=== PATIENT | female | born 1965 | race Caucasian/White ===

== ENCOUNTER 2018-06-12 11:48 | Emergency (ER) | payer OTHER ==
[~2018-06-12] VITALS: Ht 167.6 cm; Wt 95.3 kg
--- OUTSIDE RECORDS SUMMARY | 2018-06-12 11:50 | XMS REPORT | Clinical Summary ---
Author Author [facility] Organization [facility] Address Unknown Phone Unavailable Care Team Providers Care Loaf Counter Name Role Phone Clemente Pitt MD PCP Allergies Comments Active Allergy Reactions Severity Noted Date Ciprofloxacin 07/13/2015 Medications End Date Status Medication Sig Dispensed Refills Start Date Active FARXIGA 10 mg tablet Take 1 tablet 5 by mouth once 6 daily. Active metFORMIN XR Take 1,000 mg 6 (GLUCOPHATE-XR) 500 MG 24 by mouth once 6 hr tablet daily. Active omeprazole (PriLOSEC) 40 Take 40 mg by 11 MG capsule mouth 2 (two) 6 times a day. Active metoclopramide (REGLAN) TAKE 1 TABLET 30 tablet 2 10 MG tablet BY MOUTH 7 EVERY NIGHT 09/16/2017 methocarbamol (ROBAXIN) Take 1 tablet 20 tablet 0 500 MG tablet (500 mg 8 total) by mouth 2 (two) times a day for 30 days. 09/16/2017 naproxen (NAPROSYN) 500 Take 1 tablet 60 tablet 0 MG tablet (500 mg 8 total) by mouth 2 (two) times a day with meals for 30 days. Active Problems Not on file Encounters Care Team Description Date Type Specialty Brandin Lara DO Spasm of thoracic back muscle (Primary Dx) 08/17/2017 Emergency Emergency Medicine after 06/11/2017 Family History Medical History Relation Name Comments Lung cancer Father Lung disease Father Cancer Maternal Grandfather Heart disease Maternal Grandfather Lung disease Maternal Grandfather Cancer Maternal Grandmother Heart disease Maternal Grandmother Lung disease Maternal Grandmother Hypertension Mother Crohn's disease Other Unidentified Cancer Paternal Grandfather Heart disease Paternal Grandfather Lung disease Paternal Grandfather Cancer Paternal Grandmother Heart disease Paternal Grandmother Lung disease Paternal Grandmother Relation Name Status Comments Father Maternal Grandfather Maternal Grandmother Mother Other Unidentified Paternal Grandfather Paternal Grandmother Social History Date Tobacco Use Types Packs/Day Years Used Never Smoker Smokeless Tobacco: Never Used Alcohol Use Drinks/Week oz/Week Comments No rare Sex Assigned at Date Recorded Not on file Industry Job Start Date Occupation Not on file Not on file Not on file Travel End Travel History Travel Start No recent travel history available. Last Filed Vital Signs Time Taken Vital Sign Reading 08/17/2017 1:26 PM CDT Blood Pressure 124/78 08/17/2017 1:26 PM CDT Pulse 92 08/17/2017 10:35 AM CDT Temperature 37.2 C (98.9 F) 08/17/2017 1:26 PM CDT Respiratory Rate 16 08/17/2017 1:26 PM CDT Oxygen Saturation 100% - Inhaled Oxygen - Concentration - Weight - - Height - - Body Mass Index - Plan of Treatment Health Maintenance Due Date Last Done Comments CERVICAL CANCER SCREENING 11/19/1987 BREAST CANCER SCREENING 2016 COLON CANCER SCREENING 2016 SHINGLES VACCINES (#1) 2016 INFLUENZA VACCINE 09/27/2018 Procedures Comments Procedure Name Priority Date/Time Associated Diagnosis CT ANGIOGRAM PE CHEST STAT 08/17/2017 12:41 PM CDT HCG QUALITATIVE, URINE STAT 08/17/2017 SCREEN 11:52 AM CDT ZZESTIMATED GFR STAT 08/17/2017 11:16 AM CDT BASIC METABOLIC PANEL STAT 08/17/2017 11:16 AM CDT HC COMPLETE BLD COUNT STAT 08/17/2017 W/AUTO DIFF 11:16 AM CDT XR CHEST 2 VW STAT 08/17/2017 11:14 AM CDT ECG 12-LEAD STAT 08/17/2017 11:02 AM CDT ECG ED PRELIMINARY Routine 08/17/2017 INTERPRETATION 10:55 AM CDT after 06/11/2017 Results * CT Angiogram Pe Chest (08/17/2017 12:41 PM CDT) Narrative Performed At Examination: [facility] Clinical history: chest paintachycardia Comparison: None Technique: Multiple computerized axial tomographic images were obtained of the chest during administration of IV contrast according to CTA PE chest protocol. Sagittal and coronal MIP CT angiographic series were constructed. CT imaging was performed with iterative reconstruction technique and/or automated exposure control to reduce radiation dose. IMPRESSION: 1.Pulmonary arterial opacification is satisfactory. There is no evidence of pulmonary embolism. 2.There is no significant pleural or pericardial effusion, mediastinal or hilar lymphadenopathy. 3.The heart is not enlarged. The thoracic aorta is normal caliber. 4.A 0.2 cm pleural-based right middle lobe nodule is nonspecific, though such findings are generally considered nonaggressive given small size and location. Please correlate with the patient's risk factors to determine whether further surveillance is necessary. A benign calcified granulomas present within the right middle lobe. 5.There is no acute osseous pathology.Cholecystectomy clips are present. Conclusion: 1. No evidence of pulmonary embolism. 2. Please see above. [facility]-[id number] Procedure Note Interface, Radiology Results Incoming - 08/17/2017 12:49 PM CDT Examination: CT ANGIOGRAM PE CHEST Clinical history: chest pain tachycardia Comparison: None Technique: Multiple computerized axial tomographic images were obtained of the chest during administration of IV contrast according to CTA PE chest protocol. Sagittal and coronal MIP CT angiographic series were constructed. CT imaging was performed with iterative reconstruction technique and/or automated exposure control to reduce radiation dose. IMPRESSION: 1. Pulmonary arterial opacification is satisfactory. There is no evidence of pulmonary embolism. 2. There is no significant pleural or pericardial effusion, mediastinal or hilar lymphadenopathy. 3. The heart is not enlarged. The thoracic aorta is normal caliber. 4. A 0.2 cm pleural-based right middle lobe nodule is nonspecific, though such findings are generally considered nonaggressive given small size and location. Please correlate with the patient's risk factors to determine whether further surveillance is necessary. A benign calcified granulomas present within the right middle lobe. 5. There is no acute osseous pathology. Cholecystectomy clips are present. Conclusion: 1. No evidence of pulmonary embolism. 2. Please see above. [facility]-[id number] Performing Organization Address City/State/Zipcode Phone Number [facility] [address] [place] [address] * hCG qualitative, urine screen (08/17/2017 11:52 AM CDT) hCG qualitative, urine Negative Negative [facility] [place] Comment: PATHOLOGY AND The manufacturers stated GENOMIC MEDICINE sensitivity of HcG test for serum is >/=10 mIU/ml and urine is >/=20mIU/ml. Specimen Urine Performing Organization Address City/State/Zipcode Phone Number [facility] [address] [place] [phone] PATHOLOGY AND [facility] * Estimated GFR (08/17/2017 11:16 AM CDT) GFR Non Af Amer >90 mL/min/1.73 m2 [facility]OLOGY AND [facility] GFR Af Amer >90 mL/min/1.73 m2 [facility] Comment: PATHOLOGY AND Chronic kidney disease: <60 GENOMIC MEDICINE mL/min/1.73m2 Kidney failure: <15 mL/min/1.73m2 The estimated GFR is calculated from the IDMS-traceable Modification of Diet in Renal Disease Equation. The accuracy of the calculation is poor when the creatinine is normal. Calculated values >90 mL/min/1.73m2 are not reported. This equation has not been validated in children (<18 years), women, the elderly (>70 years), or ethnic groups other than Caucasians and Americans. Specimen Plasma specimen Performing Organization Address City/State/Zipcode Phone Number [facility] [address] [facility] [place] [address] PATHOLOGY AND [facility] * CBC with platelet and differential (08/17/2017 11:16 AM CDT) WBC 6.0 4.2 - 11.0 k/uL [facility] RBC 4.95 4.04 - 5.86 m/uL [facility]IC[facility] HGB 9.7 (L) 11.5 - 15.3 g/dL [facility] AND [facility]IC[facility] HCT 33.9 (L) 34.0 - 45.0 % [facility]IC[facility] MCV 68.5 (L) 80.0 - 98.0 fL [facility] AND [facility] MEDICINE MCH 19.6 (L) 27.0 - 34.0 pg [facility] AND [facility] MEDICINE MCHC 28.6 (L) 31.5 - 36.5 g/dL [facility] AND [facility]ICINE RDW - SD 47.1 37.0 - 51.0 fL [facility] AND [facility]IC[facility] MPV 9.2 7.4 - 10.4 fL [facility]IC[facility] Platelet count 337 150 - 400 k/uL [facility] AND [facility] MEDICINE Nucleated RBC 0.00 /100 WBC [facility] AND [facility]IC[facility] Neutrophils 60.3 36.0 - 66.0 % [facility] AND [facility] MEDICINE Lymphocytes 28.2 24.0 - 44.0 % [facility] AND [facility] MEDICINE Monocytes 7.1 (H) 0.0 - 6.0 % [facility] AND [facility] MEDICINE Eosinophils 3.5 0.0 - 6.0 % [facility] AND [facility] MEDICINE Basophils 0.7 0.0 - 1.2 % [facility] AND [facility] MEDICINE Immature granulocytes 0.2 0.0 - 1.0 % [facility] AND [facility] MEDICINE Specimen Blood Performing Organization Address City[facility] Phone [facility] [place] [phone] PATHOLOGY AND GENOMIC MEDICINE * Basic metabolic panel (08/17/2017 11:16 AM CDT) Sodium 135 135 - 150 mEq/L [facility] AND [facility] MEDICINE Potassium 4.3 3.5 - 5.0 mEq/L [facility] AND [facility] MEDICINE Chloride 98 98 - 112 mEq/L [facility]OLOGY AND [facility]OMIC MEDICINE CO2 24 24 - 31 mmol/L [facility]OLOGY AND GENOMIC MEDICINE Anion gap 13@ANIO 7 - 15 mEq/L [facility] AND [facility]OMIC MEDICINE BUN 11 7 - 18 mg/dL [facility] MEDICINE Creatinine 0.60 0.50 - 0.90 mg/dL [facility] AND [facility]IC MEDICINE Glucose 131 (H) 65 - 100 mg/dL [facility] AND [facility]OM[facility] MEDICINE Calcium 9.8 8.3 - 10.2 mg/dL [facility] AND [facility]OMIC MEDICINE Specimen Plasma specimen Performing Organization Address [facility] Phone Number [facility] [address] [place] [id number] PATHOLOGY AND GENOMIC MEDICINE * XR Chest 2 Vw (08/17/2017 11:14 AM CDT) Narrative Performed At EXAMINATION:XR CHEST 2 VW [facility] CLINICAL HISTORY:Chest Pain XR CHEST 2 VWimages are submitted COMPARISON:NONE FINDINGS: The cardiac silhouette is normal in size. The pulmonary vasculature is within normal limits. The lung zones are clear. There is no pleural effusion or pneumothorax. IMPRESSION: 1. There is no acute cardiopulmonary disease. [facility]-[id number] Procedure Note Hm Interface, Radiology Results Incoming - 08/17/2017 11:18 AM CDT EXAMINATION: XR CHEST 2 VW CLINICAL HISTORY: Chest Pain XR CHEST 2 VW images are submitted COMPARISON: NONE FINDINGS: The cardiac silhouette is normal in size. The pulmonary vasculature is within normal limits. The lung zones are clear. There is no pleural effusion or pneumothorax. IMPRESSION: 1. There is no acute cardiopulmonary disease. [facility]-[id number] Performing Organization Address [facility] Phone Number [facility] [address] [place] [address] * ECG 12 lead (08/17/2017 11:02 AM CDT) Ventricular rate 105 [facility] Atrial rate 105 [facility] VA interval 134 [facility] QRSD interval 72 [facility] QT interval 332 [facility] QTC interval 438 [facility] P axis 1 54 [facility] QRS axis 1 70 [facility] T wave axis 12 [facility] EKG impression Sinus tachycardia-T wave [facility] MUSE abnormality, consider lateral ischemia-Abnormal ECG-No previous ECGs available- Performing Organization Address [facility] Phone Number [facility] MUSE [address] [place] [address] * ECG ED Preliminary Interpretation - NOT AN ORDER (08/17/2017 10:55 AM CDT) Narrative Performed At Brandin Lara DO 08/17/20173:37 PM ECG ED Preliminary Interpretation - Not an Order Performed by: BRANDIN LARA Authorized by: BRANDIN LARA ECG reviewed by ED Physician in the absence of a all source intelligence analyst: yes Interpretation: Interpretation: normal Rate: ECG rate:105 ECG rate assessment: tachycardic Rhythm: Rhythm: sinus tachycardia Ectopy: Ectopy: none QRS: QRS axis:Normal QRS intervals:Normal Conduction: Conduction: normal ST segments: ST segments:Normal T waves: T waves: normal Comments: ECG was performed at 1102. after 06/11/2017 Insurance Payer Benefit Subscriber ID Type Phone Address Plan / Group AETNA AETNA PPO xxxxxxxxxx PPO OPEN CHOICE Advance Directives Patient has advance care planning documents on file. For more information, arcenio huber contact: Rigoberto Acevedo [address] [place] [address]
[2018-06-12 12:54] LABS: BASOPHILS # (AUTO) 0.1 (0.0-0.1); BASOPHILS % 0.8 % (0.0-1.0); EOSINOPHILS # (AUTO) 0.2 (0.0-0.4); EOSINOPHILS % 2.4 % (0.0-6.0); HEMATOCRIT 35.2 % (34.2-44.1); HEMOGLOBIN 11.3 g/dL (12.0-16.0); LYMPHOCYTES # (AUTO) 1.6 (1.0-3.2); LYMPHOCYTES % 26.2 % (18.0-39.1); MEAN CORPUSCULAR HGB CONC 32.1 g/dL (31-35); MEAN CORPUSCULAR VOLUME 84.2 fL (81-99); MONOCYTES # (AUTO) 0.5 (0.2-0.8); MONOCYTES % 7.9 % (4.4-11.3); NEUTROPHILS # (AUTO) 3.9 (2.1-6.9); NEUTROPHILS % 62.2 % (38.7-80.0); PLATELET COUNT 241 x10e3/uL (140-360); RED BLOOD COUNT 4.18 x10e6/uL (3.6-5.1); RED CELL DISTRIBUTION WIDTH 14.6 % (11.7-14.4)
[2018-06-12 12:59] LABS: CLARITY,URINE CLEAR (CLEAR); COLOR,URINE YELLOW (YELLOW); KETONES,URINE NEGATIVE (NEGATIVE); LEUKOCYTE ESTERASE ,URINE NEGATIVE (NEGATIVE); NITRITE,URINE NEGATIVE (NEGATIVE); PROTEIN,URINE DIPSTICK NEGATIVE (NEGATIVE); URINE UROBILINOGEN 0.2 mg/dL (0.2 - 1)
[2018-06-12 13:00] LABS: BILIRUBIN,URINE NEGATIVE (NEGATIVE)
[2018-06-12 13:09] LABS: ALANINE AMINOTRANSFERASE 58 IU/L (0-55); ALBUMIN 3.8 g/dL (3.5-5.0); ALBUMIN/GLOBULIN RATIO 1.1 (0.8-2.0); ALKALINE PHOSPHATASE 111 IU/L (40-150); ANION GAP 13.5 mmol/L (8-16); BLOOD UREA NITROGEN 11 mg/dL (7-26); BUN/CREATININE RATIO 16 (6-25); CALCIUM 9.1 mg/dL (8.4-10.2); CARBON DIOXIDE 22 mmol/L (22-29); CHLORIDE 103 mmol/L (98-107); CREATINE KINASE 67 IU/L (29-168); EST GLOMERULAR FILTRATION RATE > 60 ML/MIN (60-); GLUCOSE 125 mg/dL (74-118); POTASSIUM 3.5 mmol/L (3.5-5.1); SODIUM 135 mmol/L (136-145)
[2018-06-12 13:13] LABS: BACTERIA,URINE MODERATE /HPF; EPITHELIAL CELLS,URINE FEW /LPF
[2018-06-12 13:14] LABS: MUCUS,URINE MODERATE (RARE)
[2018-06-12 13:29] LABS: THYROID STIMULATING HORMONE 0.601 uIU/mL (0.350-4.940)
[2018-06-12] MEDS ORDERED: ACETAMINOPHEN 325 MG TAB PO ONE (14:00)
[2018-06-12] MEDS ORDERED: CEFTRIAXONE SOD 1 GM/NS 50 ML 50 ML IV NR (14:00)
[2018-06-12 15:07] VITALS: BP 159/84
== END 2018-06-12 15:46 | disposition home or self-care (01) ==
LOC: ER 11:48
DX: I10 Essential (primary) hypertension (principal); E78.5 Hyperlipidemia, unspecified; J45.909 Unspecified asthma, uncomplicated; Z87.440 Personal history of urinary (tract) infections; E11.43 Type 2 diabetes mellitus with diabetic autonomic (poly)neuropathy; K31.84 Gastroparesis
CPT/HCPCS: 36415; 80053; 81001; 82550; 82553; 83605; 84443; 84484; 85025; 87086; 93005; 99284; J0696